=== PATIENT | male | born 1995 | race Two or more races ===

== ENCOUNTER 2025-06-18 19:00 | Emergency (ER) | payer MEDICAID, OTHER ==
[~2025-06-18] VITALS: Ht 182.9 cm; Wt 93.4 kg
[2025-06-18 19:19] VITALS: BP 136/81; PULSE 74; RESP 18; TEMP 98.1; O2SAT 99
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
[2025-06-18] MEDS ORDERED: CEPH250C PO (21:04)
== END 2025-06-18 23:05 | disposition home or self-care (01) ==
LOC: ER 19:00
DX: S02.2XXA Fracture of nasal bones, initial encounter for closed fracture (principal); S01.81XA Laceration without foreign body of other part of head, initial encounter; F17.210 Nicotine dependence, cigarettes, uncomplicated; J34.2 Deviated nasal septum; Z21 Asymptomatic human immunodeficiency virus [HIV] infection status; Z98.890 Other specified postprocedural states; Y04.0XXA Assault by unarmed brawl or fight, initial encounter; Y93.89 Activity, other specified; Y92.89 Other specified places as the place of occurrence of the external cause; Y99.8 Other external cause status
CPT/HCPCS: 70486